=== PATIENT | female | born 1980 | race Caucasian/White ===

== ENCOUNTER 2021-05-06 08:03 | Outpatient (CLI) | payer OTHER | END 2021-05-06 08:04 | disposition home or self-care (01) | LOC: NUCLEAR 08:03 | PROVIDERS: ATTEND Internal Medicine Cardiovascular Disease | DX: Z86.73 Personal history of transient ischemic attack (TIA), and cerebral infarction without residual deficits (principal); I10 Essential (primary) hypertension; G45.1 Carotid artery syndrome (hemispheric) ==

== ENCOUNTER 2022-09-22 17:25 | Emergency (ER) | payer OTHER ==
[~2022-09-22] VITALS: Ht 165.1 cm; Wt 72.6 kg
== END 2022-09-22 20:07 | disposition home or self-care (01) ==
LOC: ER 17:25
DX: J03.90 Acute tonsillitis, unspecified (principal)